=== PATIENT | male | born 1970 | race African-American/Black ===

== ENCOUNTER → 2016-10-25 | Outpatient (CLI) | payer OTHER ==
[~2016-10-25] MED LIST: ALBUTEROL0.83 MG/ML IH; ALBUTEROL17 GM INH; AZITHROMYCIN250 MG PO; CIPRO PO; MEDROL4 MG/DOSE- PO; MORGIDOX100 MG PO; NAPROSYN375 MG PO; PREDNISONE PO; PREDNISONE10 MG/DOSE PO; PROVENTIL INH0.5 ML HHN; VICODIN 5/500 T1 TAB PO
--- NOTE | ~2016-10-25 | US6 ---
[facility] A Service of [facility] RADIOLOGY TEXT RESULTS PATIENT: CAMMY POWER LOCATION: CGUS : 74 UNIT #: [id number] AGE: [address]: ODELL BONNER APRN SEX: M ORDER DR: [id number] [facility] [address] [place], [place] [address] [id number] O MR#: [id number] Acc #: [id number] NAME: CAMMY POWER : 1970 SEX: M STUDY DATE/TIME: 10/25/2016 11:13 UNIT: CGUS ROOM: STUDY DESCRIPTION: US Abdominal Limited Attending Physician: Odell Bonner A.P.R.N. Ordering Physician: Odell Bonner A.P.R.N. Primary Care Physician: [facility] MEDICAL IMAGING REPORT This report is preliminary unless electronic signature is present EXAM Limited abdominal ultrasound 10/25/2016 INDICATIONS Abdominal wall hernia status post respect repair 2007. Left inguinal pain since 2007. PROCEDURE Thomas-scale imaging in the left inguinal region. COMPARISON None FINDINGS No mass or fluid collection. No convincing evidence for hernia. There is some shadowing in this region. This may be related to the mesh material. IMPRESSION Shadowing in the left inguinal region may be related to mesh material from previous hernia repair. There is no convincing evidence for hernia in the left inguinal region. If there is ongoing clinical suspicion CT may be helpful. Dictated by... Jose Delgado M.D. THIS IS AN ELECTRONICALLY VERIFIED REPORT Jose Delgado M.D. at 10/28/2016 7:21 AM EL/theron TD: 10/25/2016 18:02 JOB #: [id number] [facility] A Service [facility] RADIOLOGY TEXT RESULTS PATIENT: CAMMY POWER LOCATION: CGUS : 74 UNIT #: [id number] AGE: [address]: ODELL BONNER APRN SEX: M ORDER DR: MEDICAL IMAGING REPORT COPY
== END | disposition home or self-care (01) ==
LOC: CGUS 10:45
DX: K46.9 Unspecified abdominal hernia without obstruction or gangrene (principal); Z98.890 Other specified postprocedural states
CPT/HCPCS: 76705

== ENCOUNTER → 2016-12-17 | Outpatient (CLI) | payer OTHER ==
--- NOTE | ~2016-12-17 | CT2 ---
[facility] A Service of [facility] RADIOLOGY TEXT RESULTS PATIENT: CAMMY POWER LOCATION: CCAT : 74 UNIT #: [id number] AGE: [address]: John Hogan MD SEX: M ORDER DR: [id number] [facility] [address] [place], [place] [address] [id number] O MR#: [id number] Acc #: [id number] NAME: CAMMY POWER : 1970 SEX: M STUDY DATE/TIME: 12/17/2016 12:56 UNIT: CCAT ROOM: STUDY DESCRIPTION: CT Abd and Pelv W Cont Attending Physician: John Hogan Jr., M.D. Referring Physician: John Hogan Jr., M.D. Ordering Physician: John Hogan Jr., M.D. [facility] REPORT This report is preliminary unless electronic signature is present EXAM CT of the abdomen and pelvis with IV contrast media. HISTORY SUPPLIED Abdominal pain left inguinal region since hernia surgery in 2007, getting worse. TECHNIQUE Axial imaging of the abdomen and pelvis was performed with IV contrast media. This CT exam was performed with one or more of the following radiation dose reduction techniques: automatic exposure control, adjustment of mA and/or kV according to patient size, and iterative reconstruction. FINDINGS Lung bases in this patient are clear. Liver, gallbladder, and spleen are normal. Adrenal glands are normal and the pancreas is normal. There is an incidental left renal cyst. No other renal masses are seen. No dilated or thickened loops of bowel are present. No pelvic masses or fluid collections are seen. No dilated or thickened loops of bowel are seen. The bladder is largely decompressed and there is some bladder wall thickening likely incidental. No anterior abdominal wall abnormalities are identified. Prostate does not appear enlarged. Patient does have some mild degenerative disc bulging at L4-5 and at L5-S1. CONCLUSIONS 1. Essentially normal CT of the abdomen and pelvis. 2. Incidental left renal cyst. 3. Lumbar degenerative disc disease L4-5 and L5-S1. Dictated by... Vidal Hurt M.D. [facility] A Service of [facility] RADIOLOGY TEXT RESULTS PATIENT: CAMMY POWER LOCATION: [facility] : 74 UNIT #: [id number] AGE: [address]: John Hogan MD SEX: M ORDER DR: THIS IS AN ELECTRONICALLY VERIFIED REPORT Vidal Hurt M.D. at 12/20/2016 4:42 PM CONCEPCION/seun TD: 12/17/2016 19:15 JOB #: [id number] MEDICAL IMAGING REPORT Page 1 of 1 COPY
[2016-12-17 15:21] LABS: POC - CREATININE 0.96 mg/dL (0.64-1.27); POC - GFR >60.0 mL/min (>60)
== END | disposition home or self-care (01) ==
LOC: CCAT 11:16
PROVIDERS: Surgery
DX: R10.9 Unspecified abdominal pain (principal); K46.9 Unspecified abdominal hernia without obstruction or gangrene; G89.18 Other acute postprocedural pain; M51.36 Other intervertebral disc degeneration, lumbar region; M51.37 Other intervertebral disc degeneration, lumbosacral region
CPT/HCPCS: 74177; 82565; Q9967

== ENCOUNTER 2017-03-12 23:46 | Emergency (ER) | payer OTHER ==
[~2017-03-12] VITALS: Ht 185.4 cm; Wt 86.2 kg
== END 2017-03-13 01:48 | disposition home or self-care (01) ==
LOC: CED 23:46
DX: B86 Scabies (principal); K21.9 Gastro-esophageal reflux disease without esophagitis; J45.909 Unspecified asthma, uncomplicated
CPT/HCPCS: 99282